=== PATIENT | male | born 1980 | race Two or more races ===

== ENCOUNTER 2021-08-22 17:42 | Emergency (ER) | payer SELFPAY ==
[~2021-08-22] VITALS: Ht 172.7 cm; Wt 84.8 kg
[2021-08-22 17:47] VITALS: BP 127/67
--- NOTE | 2021-08-22 17:51 | NUR ---
Patient ambulated to bed 12 with steady/even gait.
[2021-08-22] MEDS ORDERED: LIDOCAINE 2% 1000 MG/50 ML VIAL INJ ONE (17:55)
--- NOTE | 2021-08-22 18:30 | NUR ---
41/M BIB SELF FROM HOME WITH C/O LACERATION TO HIS LEFT 2ND DIGIT. STATES 10 MINUTES PRIOR TO ARRIVAL TO ED HE WAS CUTTING MEAT WHEN HE ACCIDENTALLY CUT HIS FINGER. BLEEDING CONTROLLED AT THIS TIME, DENIES NUMBESS. REPORTS 8/10 CONSTANT SHARP PAIN THAT IS NONRADIATING, STATES PAIN WORSENS WITH TOUCH OR MOVEMENT.
--- NOTE | 2021-08-22 18:37 | NUR ---
FINGER IRRIGATED WITH SALINE, LACERATION SET UP BEDSIDE.
--- NOTE | 2021-08-22 19:29 | NUR ---
Pt report given to ADA SORTO. Transfer of care at this time.
[2021-08-22 19:52] VITALS: BP 122/62
--- NOTE | 2021-08-22 19:54 | NUR ---
Patient discharged with v/s stable. Written and verbal after care instructions given and explained. Patient verbalized understanding. Ambulatory with steady gait. All questions addressed prior to discharge. Advised to follow up with PMD OR ER.
== END 2021-08-22 19:54 | disposition home or self-care (01) ==
LOC: MED 17:42
DX: S61.211A Laceration without foreign body of left index finger without damage to nail, initial encounter (principal); Z98.890 Other specified postprocedural states; W26.0XXA Contact with knife, initial encounter; Y93.89 Activity, other specified; Y92.89 Other specified places as the place of occurrence of the external cause; Y99.8 Other external cause status
CPT/HCPCS: 12001; 99282; J2001